=== PATIENT | male | born 1955 | race Hispanic/Latino ===

== ENCOUNTER → 2021-02-06 | Outpatient (CLI) | payer OTHER | END | disposition home or self-care (01) | LOC: SHCH 08:52 | PROVIDERS: ATTEND Internal Medicine Cardiovascular Disease | DX: I25.10 Atherosclerotic heart disease of native coronary artery without angina pectoris (principal); I51.7 Cardiomegaly; E11.9 Type 2 diabetes mellitus without complications; F17.200 Nicotine dependence, unspecified, uncomplicated; Z87.448 Personal history of other diseases of urinary system | CPT/HCPCS: 93306; 93356 ==

== ENCOUNTER → 2021-02-08 | Outpatient (CLI) | payer OTHER ==
[~2021-02-08] VITALS: Ht 170.2 cm; Wt 76.2 kg
[~2021-02-08] MED LIST: REGADENOSON 0.4 MG/5 ML PF SYG IVP SCH
== END | disposition home or self-care (01) ==
LOC: SHCH 07:46 → EDUNIT# 08:10
PROVIDERS: ATTEND Internal Medicine Cardiovascular Disease
DX: I25.10 Atherosclerotic heart disease of native coronary artery without angina pectoris (principal)
CPT/HCPCS: 78452; 93017; 96374; A9500 ×2

== ENCOUNTER 2021-04-05 07:11 | Day surgery (SDC) | payer OTHER ==
[2021-04-03 12:49] LABS: BASOPHILS % (AUTO) 0.6 % (0.0-5.0); EOSINOPHILS % (AUTO) 3.2 % (0.0-8.0); HEMATOCRIT 35.8 % (42-54); MEAN CORPUSCULAR HGB CONC 32.4 g/dL (32.0-36.0); MONOCYTES % (AUTO) 8.6 % (3.0-13.0); NEUTROPHILS % (AUTO) 64.1 % (40.0-77.0); PLATELET COUNT (AUTO) 306 K/uL (130-400); RED BLOOD CELL COUNT(AUTO) 3.51 MIL/uL (4.50-6.20); RED CELL DISTRIBUTION WIDTH 15.4 % (11.0-15.5); WHITE BLOOD COUNT (AUTO) 8.1 K/uL (4.8-10.8)
[2021-04-03 12:50] LABS: APPEARANCE,URINE Clear (CLEAR); BILIRUBIN,URINE Negative (NEGATIVE); COLOR,URINE Yellow (YELLOW); GLUCOSE, URINE (UA) 250 mg/dL (NEGATIVE); KETONES,URINE Negative (NEGATIVE); LEUKOCYTE ESTERASE ,URINE Trace (NEGATIVE); NITRATE,URINE Negative (NEGATIVE); OCCULT BLOOD,URINE Negative (NEGATIVE); PROTEIN,URINE 300 mg/dL (NEGATIVE)
[2021-04-03 12:59] LABS: BACTERIA,URINE Rare /HPF (None Seen); RBC,URINE 0-1 /HPF (0-1); SQUAMOUS EPITHELIAL CELL,UR Rare /HPF (0-2); WBC,URINE 0-1 /HPF (0-1)
[2021-04-03 13:00] LABS: POTASSIUM 5.4 mmol/L (3.5-5.1)
[2021-04-03 13:01] LABS: CREATININE 8.9 mg/dL (0.5-1.5); INR 0.98 (0.85-1.15); PROTHROMBIN TIME 10.7 SEC (9.6-11.6)
[2021-04-03 13:02] LABS: PARTIAL THROMBOPLASTIN TIME 25.4 SEC (26.3-35.5)
[2021-04-05] VITALS (10 sets, daily range): BP systolic 112–158; BP diastolic 50–62
[~2021-04-05] VITALS: Ht 170.2 cm; Wt 76.0 kg
[~2021-04-05 07:11] MED LIST changes: +ASPI-1443 PO; +AURYXIA PO; +CLON0.3T PO; +FOLI1TAB85 PO; +GABA-529 PO; +HYDR100T27 PO; +INSU100V37 SQ; +LISI40TA9 PO; +NIFE60TA81 PO; +OMEP40CA21 PO; -REGADENOSON 0.4 MG/5 ML PF SYG IVP SCH; +SODI5POW2 PO
[2021-04-05] MEDS ORDERED: LIDOCAINE HCL 400MG/20ML VIAL ONE (08:11)
[2021-04-05] MEDS ORDERED: IOHEXOL-350 75 ML VIAL IV ONE ×2 (08:11→09:04)
[2021-04-05] MEDS ORDERED: HEPARIN 10,000 UNIT/10ML (1,000 UNIT/ML) VIAL ONE (08:11)
[2021-04-05] MEDS ORDERED: IOHEXOL-350 50ML VIAL IV ONE (08:11)
[2021-04-05] MEDS ORDERED: 0.9%NACL 1000ML 1,000 ML IV ONE (08:35)
[2021-04-05] MEDS ORDERED: DEXTROSE 50%-WATER 50 ML DISP.SYRIN IV PRN (10:00)
[2021-04-05] MEDS ORDERED: GLUCAGON 1MG KIT 1 MG ML IM PRN (10:00)
== END 2021-04-05 14:00 | disposition home or self-care (01) ==
LOC: DAH 07:11
PROVIDERS: ATTEND Internal Medicine Cardiovascular Disease
DX: I25.10 Atherosclerotic heart disease of native coronary artery without angina pectoris (principal); I12.0 Hypertensive chronic kidney disease with stage 5 chronic kidney disease or end stage renal disease; E11.22 Type 2 diabetes mellitus with diabetic chronic kidney disease; N18.6 End stage renal disease; I25.2 Old myocardial infarction; Z99.2 Dependence on renal dialysis; Z95.1 Presence of aortocoronary bypass graft; E78.5 Hyperlipidemia, unspecified; Z79.82 Long term (current) use of aspirin; Z79.01 Long term (current) use of anticoagulants; Z79.899 Other long term (current) drug therapy
CPT/HCPCS: 36415; 71045; 75630; 80048; 81001; 82948 ×3; 85025; 85610; 85730; 93005; 93459; A4215; A4216; A4221; A4222; A4223 ×3; A4606; A4663; A6260; C1760; C1894; J1644; J3490; J7030; Q9967 ×3

== ENCOUNTER → 2023-08-15 | Outpatient (CLI) | payer OTHER ==
[~2023-08-15] MED LIST changes: +NIFE-79 PO; -NIFE60TA81 PO
== END | disposition home or self-care (01) ==
LOC: SHCH 08:53
PROVIDERS: ATTEND Internal Medicine Cardiovascular Disease
DX: I70.203 Unspecified atherosclerosis of native arteries of extremities, bilateral legs (principal)
CPT/HCPCS: 93925

== ENCOUNTER 2024-11-17 06:09 | Day surgery (SDC) | payer OTHER ==
[2024-11-17] VITALS (15 sets, daily range): BP systolic 92–161; BP diastolic 41–70; PULSE 65–73; RESP 12–20; TEMP 97.2–99.1
[~2024-11-17] VITALS: Ht 170.2 cm; Wt 77.6 kg
[~2024-11-17 06:09] MED LIST changes: +ATOR40TA69 PO; -AURYXIA PO; +CINA30 PO; -CLON0.3T PO; +DONE5TAB33 PO; -GABA-529 PO; +GABA300C PO; -HYDR100T27 PO; +ROPI0.5T37 PO; +SODI10PO2 PO; -SODI5POW2 PO
[2024-11-17] MEDS ORDERED: 0.9%NACL 1000ML 0 ML IV ONE (06:13)
[2024-11-17] MEDS ORDERED: AURYXIA PO (07:51)
[2024-11-17] MEDS: 0.9% NACL 500ML IV.SOLN 500 ML IV ONE (07:55)
[2024-11-17] MEDS ORDERED: proPOFol 10 MG/ML 20ML VIAL IV ONE ×2 (10:04→10:25)
[2024-11-17] MEDS ORDERED: SIMETHICONE 40 MG/0.6 ML ML ONE (10:28)
[2024-11-17 11:42] LABS: POTASSIUM 4.2 mmol/L (3.5-5.1)
== END 2024-11-17 12:15 | disposition home or self-care (01) ==
LOC: DAH 06:09 → ENDO 06:09
PROVIDERS: ATTEND Internal Medicine Gastroenterology
DX: D50.9 Iron deficiency anemia, unspecified (principal); D12.3 Benign neoplasm of transverse colon; K31.89 Other diseases of stomach and duodenum; R12 Heartburn; I10 Essential (primary) hypertension; I25.10 Atherosclerotic heart disease of native coronary artery without angina pectoris; R19.4 Change in bowel habit; E11.9 Type 2 diabetes mellitus without complications; Z99.2 Dependence on renal dialysis; E78.5 Hyperlipidemia, unspecified; Z79.82 Long term (current) use of aspirin; Z79.899 Other long term (current) drug therapy
CPT/HCPCS: 45385; 43239; 80048; 82948; 36415; J7040; J2704 ×2; A4620; A4215 ×2; A4223; A4222; A4221; A4663; J7030; A4606; J3490

== ENCOUNTER → 2025-02-09 | Outpatient (CLI) | payer OTHER ==
[~2025-02-09] MED LIST changes: +AURYXIA PO
[2025-02-09] MEDS: REGADENOSON 0.4 MG/5 ML PF SYG IVP ONE (10:44)
--- NOTE | 2025-02-10 11:57 | HMCSR ---
APPROVED REPORT Height: 5 ft 7in Weight: 169 lbs TEST INDICATIONS CAD The imaging protocol used to acquire images was Rest Tc-99m/stress Tc-99m 1 day Consent: The procedure was explained and understood by the patient. Informerd consent was witnessed Bridgette Davis RN First, low dose rest was performed then high dose stress. RESTING DATA: The resting ekg shows: NSR Rest SPECT myocardial perfusion imaging was performed in supine position 63 minutes following the int ravenous injection of 10.5 mCi of Tc-99 Sestamibi. Time of rest injection: 09:16: Date: 02/09/2025 Time of rest imagin:19: Date: 02/09/2025 PHARMACOLOGIC STRESS: Pharmacologic stress test was performed by injecting regadenoson 0.4 mg IV push followed by the intra venous injection of 29.8 mCi of Tc-99 Sestamibi. Time of stress injection: 11:00: Date: 02/09/2025 Time of stress imagin:08: Date: 02/09/2025 Heart Rate at time of stress injection: 58 bpm. Gated Stress SPECT was performed 68 minutes after stress injection. The images were gated to evaluate regional wall motion and calculate left ventricular ejection fracti on. STRESS DETAILS Reason for Termination: Infusion complete Stress Symptoms: Dyspnea Max HR Achieved: 76 bpm % of APMHR Achieved: 51 Max Blood Pressure: 121/57 mmHg Stress ECG: NSR Conclusion Inferior and lateral wall infarct No ischemia LV ejection fraction of 40% Hypokinesis of the inferior wall Dilated left ventricle at rest and stress No evidence of increased lung uptake
== END | disposition home or self-care (01) ==
LOC: SHCH 08:19
PROVIDERS: ATTEND Internal Medicine Cardiovascular Disease
DX: I25.10 Atherosclerotic heart disease of native coronary artery without angina pectoris (principal); R06.00 Dyspnea, unspecified
CPT/HCPCS: 78452; 93017; J2785; A9500 ×2

== ENCOUNTER 2025-02-27 07:35 | Day surgery (SDC) | payer OTHER ==
[2025-02-22 14:49] LABS: BASOPHILS # (AUTO) 0.05 K/uL (0.00-0.20); BASOPHILS % (AUTO) 0.6 % (0.0-5.0); EOSINOPHILS # (AUTO) 0.19 K/uL (0.00-0.70); EOSINOPHILS % (AUTO) 2.1 % (0.0-8.0); HEMATOCRIT 32.9 % (42-54); IMMATURE GRANULOCYTE ABSOLUTE 0.03 K/uL (0-1); LYMPHOCYTES # (AUTO) 1.2 K/uL (1.0-4.8); LYMPHOCYTES % (AUTO) 13.4 % (21.0-51.0); MEAN CORPUSCULAR HEMOGLOBIN 30.5 pg (27.0-33.0); MEAN CORPUSCULAR HGB CONC 32.8 g/dL (32.0-36.0); MEAN CORPUSCULAR VOLUME 92.9 fL (79-99); MONOCYTES # (AUTO) 0.8 K/uL (0.1-1.0); MONOCYTES % (AUTO) 9.1 % (3.0-13.0); NEUTROPHILS # (AUTO) 6.7 K/uL (1.8-7.7); NEUTROPHILS % (AUTO) 74.5 % (40.0-77.0); PLATELET COUNT (AUTO) 243 K/uL (130-400); RED BLOOD CELL COUNT(AUTO) 3.54 MIL/uL (4.50-6.20); RED CELL DISTRIBUTION WIDTH 13.9 % (11.0-15.5)
[2025-02-22 14:56] LABS: PROTHROMBIN TIME 10.6 SEC (9.6-11.6)
[2025-02-22 14:57] LABS: PARTIAL THROMBOPLASTIN TIME 25.6 SEC (26.3-35.5)
[2025-02-22 15:01] LABS: ALBUMIN 3.8 g/dL (3.5-5.0); BILIRUBIN,TOTAL 0.4 mg/dL (0.2-1.0); CREATININE 4.5 mg/dL (0.5-1.3); POTASSIUM 4.6 mmol/L (3.5-5.1); TOTAL PROTEIN, SERUM 7.9 g/dL (6.0-8.3)
--- NOTE | 2025-02-22 15:06 | EKG ---
[facility] Test Date: 2025-02-22 Test Time: 14:32:21 Pat Name: CHRISTIANA KEENAN Department: [facility] Room: Gender: M Director Of Food And Beverage Services: [id number] : 1955 Requested By: HILDA CUELLAR Order Number: [id number] Reading MD: Gal Mccoy Measurements Intervals [place] Rate: 67 P: 23 MO: 172 QRS: -17 QRSD: 111 T: 144 QT: 424 QTc: 449 Interpretive Statements Sinus rhythm Incomplete left bundle branch block Probable LVH with secondary repol abnrm Inferior infarct, old Compared to ECG 04/03/2021 12:35:21 Myocardial infarct finding now present Electronically Signed On 02-22-2025 16:35:26 CDT by Gal Mccoy Please click the below link to view image of tracing.
[2025-02-22 15:15] VITALS: BP 96/47; PULSE 55; RESP 17; TEMP 97.5
--- NOTE | 2025-02-23 08:46 | NUR ---
REPORT DR OLMEDO REVIEWED EKG. OK TO PROCEED
[2025-02-27] VITALS (16 sets, daily range): BP systolic 150–168; BP diastolic 59–75; PULSE 55–68; RESP 14–16; TEMP 97.1–97.5
[~2025-02-27] VITALS: Ht 167.6 cm; Wt 72.0 kg
[~2025-02-27 07:35] MED LIST changes: +LISI40TA15 PO; -LISI40TA9 PO
[2025-02-27] MEDS ORDERED: 0.9%NACL 1000ML 0 ML IV ONE (07:42)
[2025-02-27] MEDS ORDERED: LIDOCAINE PF 100MG/5ML (2%) SYRINGE 5ML ONE (07:52)
[2025-02-27] MEDS ORDERED: proPOFol 10 MG/ML 20ML VIAL IV ONE (07:53)
[2025-02-27] MEDS ORDERED: FENTanyl CITRate PF 50 MCG/1 ML 2ML VIAL ONE (07:53)
[2025-02-27] MEDS ORDERED: rocuRONium bROMide 10MG/1ML 5ML VL ONE (07:53)
[2025-02-27] MEDS ORDERED: MIDAZOLAM HCL 1 MG/ML 2ML VIAL ONE (07:53)
[2025-02-27 08:21] LABS: POTASSIUM 5.2 mmol/L (3.5-5.1)
[2025-02-27] MEDS ORDERED: LIDOCAINE HCL 1% 20 ML VIAL ONE (09:11)
[2025-02-27] MEDS ORDERED: BUPIvacaine/PF 0.25% 30ML VIAL IJ ONE (09:11)
[2025-02-27] MEDS: ceFAZolin SODIUM 2 GM VIAL ONE (09:37)
[2025-02-27] MEDS: ceFAZolin SODIUM 2 GM VIAL IVPB ONE (09:39)
[2025-02-27] MEDS ORDERED: GLYCOPYRROLATE 0.2 MG/ML 5 ML VIAL ONE (09:39)
[2025-02-27] MEDS: 0.9% NACL 500ML IV.SOLN 500 ML IV ONE (09:42)
[2025-02-27] MEDS ORDERED: ePHEDrine SULFate 50 MG/ML AMPULE ONE (09:52)
[2025-02-27] MEDS ORDERED: HEParin 10,000 UNIT/10ML (1,000 UNIT/ML) VIAL ONE (10:05)
[2025-02-27] MEDS: HEParin-NS 1,000 UNIT/500 ML 500 ML IV ONE (10:23)
[2025-02-27] MEDS ORDERED: PROTamine SULFate 10 MG/ML 5 ML VIAL ONE (10:37)
[2025-02-27] MEDS ORDERED: ondanSETRON 4MG INJ ONE (10:39)
--- NOTE | 2025-02-27 13:25 | NUR ---
Full and complete discharge instructions given to Patient and Family both verbally and in writing. Explained Surgical procedure precautions and follow up. RUE site clean dry and intact with Wound vac intact properly. No evidence of bleeding, bruising or hematoma. All questions answered. PIV removed with catheter tip intact. at bedside appearing supportive. W/C to POV with to home
--- NOTE | 2025-02-27 13:46 | OP ---
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 Once general endotracheal anesthesia is achieved patient's right upper extremity is prepped and draped in sterile fashion. I then proceeded to create a transverse incision over top of the antecubital fossa at the level of the arteriovenous anastomosis and proceeded to dissect around the proximal portion of the fistula just distal to the anastomosis and obtained proximal control. I then proceeded to create a transverse incision with a 15 blade at the upper arm at the distal fistula past the aneurysms. Proceeded to dissect through the skin and subcutaneous tissue and obtain distal control. Heparin 5000 units were given. Once we had proximal and distal control I then proceeded to use the [place] 35 vascular load to divide the fistula proximally and distally. I then created a longitudinal incision over top of the aneurysms and then proceeded to use Bovie cautery to excise the aneurysm completely clipping it every branch from any collaterals that we identified. We then proceeded to obtain hemostasis at the surgical bed. I then proceeded to close his large incision where the aneurysm used to lay using 3-0 Vicryl running fashion. And leaving just the 2 incisions where we had exposure of the inflow and the outflow. I then proceeded to use a curved C tunneler to tunnel from the proximal to the distal incision laterally from our previous surgical bed and then through here proceeded to tunnel and 4- 7 mm graft making sure that the dotted line stayed up. I then proceeded to excise the staple lines. And created into an anastomosis on the arterial side and to end to the 4 mm portion of the graft with 6-0 Prolene and on the venous side to the 7 mm portion of the graft as well end to end with 6-0 Prolene as well. Once both anastomosis were created we then confirmed that there was a good thrill throughout the graft. No bleeding was seen. All incisions were closed in 2 layers. With 3-0 Vicryl and then 4-0 Monocryl. The incision at the antecubital fossa on the upper arm we applied Dermabond over top. In the longitudinal incision over top of where the aneurysms used to be we applied a suction dressing over top. Patient tolerated the procedure well all counts were correct x2 at the end of the procedure. HILDA CUELLAR MD Feb 27, 2025 13:46
== END 2025-02-27 13:30 | disposition home or self-care (01) ==
LOC: DAH 07:35
PROVIDERS: ATTEND Student in an Organized Health Care Education/Training Program
DX: I12.0 Hypertensive chronic kidney disease with stage 5 chronic kidney disease or end stage renal disease (principal); E11.22 Type 2 diabetes mellitus with diabetic chronic kidney disease; N18.6 End stage renal disease; I72.1 Aneurysm of artery of upper extremity; Z99.2 Dependence on renal dialysis; Z86.2 Personal history of diseases of the blood and blood-forming organs and certain disorders involving the immune mechanism; Z79.899 Other long term (current) drug therapy; Z79.82 Long term (current) use of aspirin; Z95.1 Presence of aortocoronary bypass graft; Z98.890 Other specified postprocedural states; Z84.89 Family history of other specified conditions
CPT/HCPCS: 80053; 85025; 85610; 85730; 86850 ×2; 86900 ×2; 86901 ×2; 36415 ×2; 93005; 36832; 80048; 82948 ×2; 88304; A6260; A4663; C1768; J7040; J3010; J0665; J3490 ×3; J2003; J2720; J1644 ×2; J2250; J2704; J2405; J0690 ×2; A4649 ×2; C1713 ×3; A4215; A4213; A4222; A4221; A4216; A4223 ×2; A4600; J7030

== ENCOUNTER 2025-03-01 13:38 | Emergency (ER) | payer OTHER ==
[~2025-03-01] VITALS: Ht 167.6 cm; Wt 72.7 kg
--- NOTE | 2025-03-01 13:51 | ERN ---
ED Note History of Present Illness Stated Complaint: ARM PROCEDURE PROBLEM Chief Complaint: Post-Op Problem Time Seen by MD: 13:39 Dictation: PATIENT IS A 69-YEAR-OLD MALE HERE WITH A RAVA HAD A REVISION FOR AN ANEURYSM SEVERAL DAYS AGO BY DR. EDWARDS. THERE IS A WOUND PUMP IN PLACE THAT IS NOT WORKING AND THEY WERE CONCERNED ABOUT SWELLING. THERE IS A BRUIT BY AUSCULTATION AND DISTAL NEUROVASCULAR CMS INTACT CAPILLARY IS LESS THAN 2 SECONDS AND BRISK. 1345/SPOKE WITH AFTER EVALUATING PATIENT. SHE SAID TO GO AHEAD AND TO REMOVE THE WOUND DRAINAGE AND PLACE GAUZE DISCHARGE PATIENT HAVE HIM FOLLOW UP IN HER OFFICE IN THE NEXT 1-2 DAYS. Allergies: Coded Allergies: No Known Drug Allergies (Unverified Allergy, Unknown, 02/07/21) Home Meds Reported Medications [Auryxia] No Conflict Check, 210 MG PO DAILY 11/17/24 Sodium Zirconium Cyclosilicate (Lokelma) 10 Gram Powd.pack, 1 PACKET PO DAILY for 30 Days, #30 PACKET 0 Refills 11/15/24 Cinacalcet HCl (Sensipar) 30 Mg Tablet, 1 TAB PO DAILY for 30 Days, #30 TAB 0 Refills 11/15/24 Ropinirole HCl (Ropinirole HCl) 0.5 Mg Tablet, 1 TAB PO HS for 30 Days, #30 TAB 0 Refills 11/15/24 Donepezil HCl (Donepezil HCl) 5 Mg Tablet, 1 TAB PO DAILY for 30 Days, #30 TAB 0 Refills 11/15/24 Gabapentin (Neurontin) 300 Mg Capsule, 300 MG PO BID, CAP 11/15/24 Atorvastatin Calcium (LIPITOR) 40 Mg Tablet, 1 TAB PO HS for 30 Days, #30 TAB 0 Refills 11/15/24 Insulin Degludec (Tresiba) 100 Unit/1 Ml Vial, 20 UNIT SQ HS, VIAL 04/04/21 Aspirin (Aspirin EC) 81 Mg Tablet.dr, 81 MG PO DAILY, TAB 04/04/21 Omeprazole (Omeprazole) 40 Mg Capsule.dr, 40 MG PO DAILY, CAP 04/04/21 Lisinopril (Lisinopril) 40 Mg Tablet, 40 MG PO BID, TAB 04/04/21 Vit B Cmplx 3/FA/Vit C/Biotin (Jayla-Júnior Rx Tablet) 1 Each Tablet, 1 EACH PO DAILY, TAB 04/04/21 Nifedipine (Nifedipine ER) 60 Mg Tablet.er, 60 MG PO BID, TAB 04/04/21 Past Medical History RN Note Reviewed/Agreed w/PFSH: Yes Review of System Dictation CONSTITUTIONAL: NEGATIVE EXCEPT FOR HPI HEAD/FACE: NEGATIVE EXCEPT FOR HPI EENT: NEGATIVE EXCEPT FOR HPI RESPIRATORY: NEGATIVE EXCEPT FOR HPI GASTROINTESTINAL/ABDOMINAL: NEGATIVE EXCEPT FOR HPI GENITOURINARY: NEGATIVE EXCEPT FOR HPI MUSCULOSKELETAL: NEGATIVE EXCEPT FOR HPI DRESSING TO A WOUND PUMP TO RIGHT BICEPS RAVA. GOOD THRILL NO NO DRAINAGE IN BAG INTEGUMENTARY: NEGATIVE EXCEPT FOR HPI NEUROLOGICAL/PSYCH: NEGATIVE EXCEPT FOR HPI HEMATOLOGIC/LYMPHATIC: NEGATIVE EXCEPT FOR HPI ALL SYSTEMS NEGATIVE, EXCEPT NOTED ABOVE. 13 POINT REVIEW OF SYSTEMS ASSESSED AND ALL NEGATIVE EXCEPT FOR ABOVE. Initial Vital Sign VS Vital Signs Date Time Temp Pulse Resp B/P (MAP) Pulse Ox O2 Delivery O2 Flow Rate FiO2 03/01/25 13:41 98.1 75 16 140/88 99 Room Air 0 03/01/25 14:14 21 Physical Exam Dictation VITAL SIGNS REVIEWED GENERAL APPEARANCE: ALERT, ORIENTED X 3, NO ACUTE DISTRESS, WELL DEVELOPED, NOURISHED. HEAD AND FACE: NON-TRAUMATIC. EYES: PERRL, PINK CONJUNCTIVAS, EYELID NO TRAUMA, ANTERIOR CHAMBER WITH ARCUS SENILIS. EARS: PINNAS INTACT AND NO SIGNS OF TRAUMA OR ERYTHEMA EAR CANALS CLEAR AND NO DISCHARGE TM NO ERYTHEMA NOSE: NO DISCHARGE, NO BLEEDING. OROPHARYNX: MOUTH NORMAL, TONGUE PINK, PHARYNX CLEAR,NO ERYTHEMA, TONSILS NO EXUDATES, NO ABSCESSES NOTED, MUCOUS MEMBRANE MOIST NECK: SUPPLE, NON-TENDER, NO THYROMEGALY, NO MASSES, NO JVD, NO BRUITS BREAST:DEFERRED CHEST:NO TENDERNESS, NO CREPITUS, NO PARADOXICAL MOVEMENT, NO RETRACTIONS LUNGS:CLEAR, WELL-VENTILATED, SYMMETRIC, NO RALES, NO WHEEZING, NO RHONCHI, NO STRIDOR, GOOD BREATH SOUNDS BILATERALLY HEART: REGULAR RATE, REGULAR RHYTHM, NO MURMUR, NO GALLOPS VASCULAR: NO PERIPHERAL EDEMA, RAVA WITH DRESSING AND WOUND VAC TO BICEP. BRUITS IN PLACE. DISTAL NEUROVASCULAR CMS INTACT AT ARM IS WARM TO TOUCH WITH CAP REFILL LESS THAN 2 SECONDS DISTALLY. ABDOMEN: SOFT, POSITIVE BOWEL SOUNDS, NONDISTENDED, NO GUARDING, NONTENDER, NO REBOUND, NO MASSES NO HEPATOMEGALY, NO SPLENOMEGALY, NO CHI'S SIGN, NO HERNIAS. RECTAL: DEFERRED GENITAL: DEFERRED NEUROLOGICAL: NORMAL SPEECH, MOTOR FUNCTION INTACT, SENSORY FUNCTION INTACT MUSCULOSKELETAL: NECK NONTENDER, FULL RANGE OF MOTION, BACK NONTENDER, FULL RANGE OF MOTION, EXTREMITIES: NONTENDER, FULL RANGE OF MOTION SKIN: COLOR PINK, DRY, NO TURGOR, NO RASH, NO LACERATIONS, NO ABRASIONS, NO CONTUSIONS. LYMPHATIC: DEFERRED Results (Laboratory/Radiology) Labs Reviewed?: Yes ED Course ED Course Orders Procedure Category Date Status Time *Nursing CPOE 03/01/25 Transmitted Communication: 13:51 Vital Signs Date Time Temp Pulse Resp B/P (MAP) Pulse Ox O2 Delivery O2 Flow Rate FiO2 03/01/25 15:14 97.9 73 18 117/66 98 Room Air* 0 21 03/01/25 14:14 74 18 117/66 98 Room Air* 0 21 03/01/25 13:41 98.1 75 16 140/88 99 Room Air 0 1345/SPOKE WITH SHE SAID TO REMOVE THE WOUND VAC DRESSING AND REPLACED WITH GAUZE DRESSING DISCHARGE PATIENT TO FOLLOW UP IN HER OFFICE IN THE NEXT 1-2 DAYS. DRESSING WAS REMOVED BY MAYE QURESHI AND REPLACED WITH GAUZE AND PATIENT WAS DISCHARGED HOME. NEUROVASCULAR CMS INTACT DISTALLY. GOOD THRILL AND BRUIT Medical Decision Making MDM MEDICAL DECISION-MAKING WAS BASED ON CALLING SURGEON CASE WAS DISCUSSED SURGICAL DRESSING WAS REMOVED PATIENT DISCHARGED HOME WITH PLAIN GAUZE TO FOLLOW UP IN HER OFFICE IN THE NEXT ONE OR TWO DAYS. GOOD THRILL AND BRUIT NOTED TO [facility] DX & DISP Disposition: Discharge Departure Impression: Primary Impression: Arteriovenous fistula of right upper extremity Additional Impression: Post surgical complication Condition: Stable Assign Patient to: FOLLOW-UP WITH PRIMARY CARE PROVIDER IN 1 TO 2 DAYS. TAKE MEDICATIONS DIRECTED HERE IN THE EMERGENCY ROOM. OKAY TO CONTINUE HOME MEDICATIONS UNLESS OTHERWISE DISCUSSED DURING YOUR VISIT IN THE EMERGENCY ROOM TODAY. RETURN TO YOUR NEAREST EMERGENCY ROOM IF SYMPTOMS WORSEN OR IF THERE IS NO IMPROVEMENT. CALL 911 IF YOU NEED IMMEDIATE ASSISTANCE. TAKE TYLENOL OR MOTRIN [id number] NEEDED AND IF NO CONTRAINDICATIONS ARE PRESENT. INCREASE ORAL HYDRATION. A WOUND CULTURE OR URINE CULTURE WAS ORDERED HERE IN THE E MERGENCY ROOM DEPARTMENT PLEASE FOLLOW-UP WITH PRIMARY CARE PROVIDER AND ADVISE THEM TO GET REPEAT PORTS FROM OUR FACILITY. IF YOU HAD ANY JAYESH WRAP/SPLINTS THAT WERE APPLIED HERE, PLEASE DO NOT REMOVE THEM UNTIL YOU SEE YOUR PRIMARY CARE OR SPECIALTY. SEE DR. JIM HERE OR OFFICE IN THE NEXT ONE OR TWO DAYS, CALL FOR AN APPOINTMENT TODAY. Referrals: SHONDA GARCIA DO (PCP) HILDA CUELLAR MD I performed a substantive portion of the visit. I have reviewed and personally made and approve the management plan that is documented in the notes by myself with CRISTIANA/resident. I acknowledged full responsibility for the patient's management plan. KJ FELIZ NP Mar 01, 2025 13:51 ROHIT SWENSON DO Mar 01, 2025 15:23
--- NOTE | 2025-03-01 14:24 | NUR ---
WOUND VAC REMOVED ORDERED, NOTED WOUND VAC PAD SATURATED WITH CEAR FLUID. REPLACED WITH 4X4 AND TAPE
[2025-03-01 15:14] VITALS: BP 117/66; PULSE 73; RESP 18; TEMP 97.8; O2SAT 98
== END 2025-03-01 15:35 | disposition home or self-care (01) ==
LOC: EDH 13:38
DX: T82.590A Other mechanical complication of surgically created arteriovenous fistula, initial encounter (principal); I77.0 Arteriovenous fistula, acquired; Z79.82 Long term (current) use of aspirin; Z79.899 Other long term (current) drug therapy; Y82.8 Other medical devices associated with adverse incidents; Y92.89 Other specified places as the place of occurrence of the external cause
CPT/HCPCS: 99282